=== PATIENT | female | born 1985 | race Caucasian/White ===

== ENCOUNTER 2017-03-26 11:43 | Emergency (ER) | payer MEDICAID, SELFPAY ==
[2017-03-26 12:59] VITALS: BP 114/72; PULSE 83; RESP 20; TEMP 36.8; O2SAT 100
== END 2017-03-26 13:00 | disposition left against medical advice (07) ==
LOC: UTC 11:49
PROVIDERS: Emergency Provider Nurse Practitioner; Family Provider Emergency Medicine; PCP Internal Medicine
DX: Z53.29 Procedure and treatment not carried out because of patient's decision for other reasons (principal)
CPT/HCPCS: 99201

== ENCOUNTER 2020-07-19 20:29 | Emergency (ER) | payer OTHER, SELFPAY ==
[2020-07-19 20:46] VITALS: BP 126/77; PULSE 89; RESP 19; TEMP 36.6; O2SAT 98; BMI 21.2
--- NOTE | 2020-07-19 20:58 | HMH.EDUTC ---
[facility] [place] Clinical Impression: Sinusitis Qualifiers: Sinusitis location: unspecified location Chronicity: unspecified Qualified Code(s): J32.9 - Chronic sinusitis, unspecified Acute bronchitis Qualifiers: Bronchitis organism: unspecified organism Qualified Code(s): J20.9 - Acute bronchitis, unspecified Disposition: Home, Self-Care Condition on Discharge: Good Instructions: Sinusitis, DI for Sinusitis, DI for Acute Bronchitis, How to Quit Smoking, Reasons to Quit Smoking Additional Instructions: ? Start antibiotic today. Be sure to complete entire prescription even if feeling better ? Monitor temp. Tylenol every 4 hours as needed and / or ibuprofen every 6 hours as needed ( As long as your primary care physician has told you that it ok to take both. For fever/aches/pains ER if no less than 101 despite Tylenol or Motrin ? Humidifier/vaporizer or hot steamy shower ? Mucinex during the day for your cough and cough suppressant only at night. Be sure to drink lots of water. Insurance may not cover a prescriptions for mucinex. Might be cheaper to get 400mg tablets and take 2 tablet in the morning, mid-day and evening with lots of water. *Start steroid today. Helps with inflammation therefore, cough and wheezing. Follow directions on the package. Reviewed side effects. Patient reports taking them before. Follow up IMMEDIATELY for new or worsening of symptoms OR no noticeable improvement over the next 48-72 hours. 911 immediately for any life threatening symptoms such as chest pain or difficulty breathing Referrals: Yo Mac [Primary Care Provider] - As needed Forms: Work/School Release Time of Disposition: 21:09 Medical Decision Making - [place] Inquiry Pt receiving controlled substance: No [place] was queried for this patient: No Vital Signs: 07/19/20 20:46 Temperature 97.8 F Temperature Source Oral Pulse Rate [Right Brachial] 89 Respiratory Rate 19 Blood Pressure [Right Arm] 126/77 Blood Pressure Mean [Right Arm] 93 Blood Pressure Source [Right Arm] Automatic Cuff Blood Pressure Position [Right Arm] Sitting 02 Sat by Pulse Oximetry 98 Oxygen Delivery Method Room Air Orders (Tests/Meds): ORDERS Category Date Time Status Covid-19 Nasal PCR ([facility]) Routine Lab 07/19/20 20:48 Received Medical Decision Narrative: patient states that she has taken azithromycin and prednisone in the past without complications or reactions [facility] [place] - General Stated complaint: COUGH,TIGHTNEESS IN CHEST Time Seen by Provider: 07/19/20 20:58 Mode of Arrival: Ambulatory Source of Information: Patient Limitations: No Limitations Description of Symptoms (Recalled from Triage Doc. by RN): cough, stuffy nose, chest tightness x2 days HEENT Symptoms (Recalled from RN notes): Yes Resp Symptoms (Recalled from RN notes): Yes Skin Symptoms (Recalled from RN notes): No MS Symptoms (Recalled from RN notes): No Functional Status (Recalled from RN notes): wnl - History of Present Illness Provider Complaint: Patient states that she is an everyday smoker States that she gets bronchitis about this time every year States that she has been having sinus pressure on and off for over a week and feels like it is trying to move into her chest State that she isnt coughing anything up but feels like she is getting bronchitis - Related Data Home Medications Medication Instructions Recorded Confirmed Naproxen [Naprosyn 500mg tablet] 500 mg PO BID 08/16/17 08/16/17 Previous Rx's Medication Instructions Recorded cephALEXin [Keflex 500mg Cap] 500 mg PO TID #30 cap 08/16/17 predniSONE [Prednisone 20mg 20 mg PO DAILY #10 tab 08/16/17 Tab] Azithromycin [Z-Alvarado 250mg Tab*] 250 mg PO UD DOSE PK #6 tab 02/20/19 Brompheniramine/Pseudoephed/Dm 5 ml PO Q6HP PRN #240 syrup 02/20/19 [Bromfed Dm Cough Syrup] predniSONE [Deltasone 10mg tablet] 10 mg PO BID 3 Days #6 tab 02/20/19 Oseltamivir Phosphate [Tamiflu 75 mg PO BID #10 cap 03/22
[2020-07-19 21:11] VITALS: BP 126/77; PULSE 89; RESP 19; TEMP 36.6; O2SAT 98
== END 2020-07-19 21:18 | disposition home or self-care (01) ==
PROVIDERS: Emergency Provider Nurse Practitioner; PCP Internal Medicine
DX: J20.9 Acute bronchitis, unspecified (principal); J32.9 Chronic sinusitis, unspecified; Z20.822 Contact with and (suspected) exposure to COVID-19; F17.210 Nicotine dependence, cigarettes, uncomplicated
CPT/HCPCS: 99202; G0463; U0003

== ENCOUNTER → 2020-11-05 09:36 | Outpatient (CLI) | payer OTHER, SELFPAY | PROVIDERS: PCP Internal Medicine; Visit Provider Internal Medicine | DX: Z20.822 Contact with and (suspected) exposure to COVID-19 (principal); U07.1 COVID-19 | CPT/HCPCS: U0003 ==

== ENCOUNTER → 2022-08-06 12:49 | Outpatient (CLI) | payer OTHER, SELFPAY ==
[2022-08-06 15:33] LABS: Microscopic, Urine URINE MICROSCOPIC (MICROSCOPIC)
[2022-08-06 15:50] LABS: Appearance,Urine CLEAR (Clear); Bilirubin,Urine Negative (Negative); Blood, Urine Negative (Negative); Color,Urine YELLOW (Yellow); Glucose,Urine (UA) Negative (Negative); Ketones,Urine Negative (Negative); Leukocyte Esterase,Urine Negative (Negative); Nitrate,Urine Negative (Negative); PH,Urine 7.5 (5.0-8.5); Protein,Urine TRACE (Negative)
[2022-08-06 15:53] LABS: Basophils % 0.4 % (0.1-2.0); Eosinophils # 0.2 K/mm3 (0.0-0.4); Eosinophils % 3.2 % (0.1-12.0); Hematocrit 44.3 % (37.0-47.0); Hemoglobin 14.4 g/dL (12.2-16.2); Lymphocytes # 1.7 K/mm3 (0.7-4.5); Mean Corpuscular HGB Conc 32.5 g/dL (31.8-35.4); Mean Corpuscular Hemoglobin 33.2 pg (27.0-31.2); Mean Corpuscular Volume 102.3 fl (81-99); Mean Platelet Volume 9.8 fl (7.4-10.4); Monocytes # 0.3 K/mm3 (0.1-1.0); Monocytes % 5.2 % (1.7-9.3); Neutrophils # 3.3 K/mm3 (1.8-7.8); Neutrophils % 60.1 % (37.0-80.0); Platelet Count 204 K/mm3 (142-424); Red Blood Count 4.32 M/mm3 (4.20-5.40); Red Cell Distribution Width 12.7 % (11.5-17.5); White Blood Count 5.4 K/mm3 (4.8-10.8)
[2022-08-06 16:12] LABS: Bacteria,Urine 1+ /lpf
[2022-08-06 16:19] LABS: Chloride 97 mmol/L (98-107); Potassium 4.3 mmoL/L (3.5-5.1); Sodium 138 mmol/L (136-145)
[2022-08-06 16:21] LABS: Alanine Aminotransferase 77 U/L (12-78); Alkaline Phosphatase 60 U/L (38-126); Aspartate Amino Transferase 65 U/L (14-36); Bilirubin,Total 0.3 mg/dl (0.2-1.3); Blood Urea Nitrogen 13 mg/dl (7-17); Estimated Glomerular Filt Rate 82 ml/min (>60); GFR (African American) 99 ML/MIN (>60)
[2022-08-06 16:22] LABS: Albumin Level 4.3 g/dl (3.5-5.0); Albumin/Globulin Ratio 1.5 (1.1-1.8); Anion Gap 15.3 mEq/L (5-15); Calcium 9.4 mg/dl (8.4-10.2); Carbon Dioxide 30 mmol/L (22.0-30.0); Globulin 2.8 g/dL (1.3-3.2); Glucose 76 mg/dl (74-100); Total Protein,Serum 7.1 g/dl (6.3-8.2)
[2022-08-06 16:31] LABS: NT Pro Brain Natriuretic Pep. 72.1 pg/mL (0-125)
[2022-08-15 10:35] LABS: Hep B Core Ab, Total NEGATIVE; Hep B Surface Ab, Qual REACTIVE; Hepatitis C Antibody REACTIVE
== END ==
PROVIDERS: PCP Internal Medicine; Visit Provider Internal Medicine
DX: R60.9 Edema, unspecified (principal); Z86.19 Personal history of other infectious and parasitic diseases
CPT/HCPCS: 80053; 81001; 83880; 85025; 86704; 86706; 87380

== ENCOUNTER → 2022-11-08 08:36 | Outpatient (CLI) | payer OTHER, SELFPAY ==
--- NOTE | 2022-11-08 08:40 | US_ITS ---
FINAL REPORT CLINICAL HISTORY: ELEVATED LFTS COMPARISON: None FINDINGS: Sonographic images of the right upper quadrant were obtained. The pancreas is partially obscured. There is a coarse hepatic echotexture present, nonspecific. The gallbladder is partially collapsed. There is no evidence of biliary ductal dilatation.The common duct measures 3 mm. Limited images of the right kidney are unremarkable. IMPRESSION: Somewhat coarsened echotexture of the liver, nonspecific finding. No evidence of biliary ductal dilatation. Reviewed, Interpreted and Dictated by Alejandro Newberry III, MD Transcribed by Iza Bryant Authenticated and [facility]
== END ==
PROVIDERS: PCP Internal Medicine; Visit Provider Physician Assistant
DX: R74.01 Elevation of levels of liver transaminase levels (principal)
CPT/HCPCS: 76705

== ENCOUNTER 2023-08-21 16:06 | Outpatient (CLI) | payer OTHER, SELFPAY ==
[2023-08-21 16:37] LABS: Basophils % 0.6 % (0.1-2.0); Eosinophils # 0.1 K/mm3 (0.0-0.4); Eosinophils % 1.8 % (0.1-12.0); Hematocrit 43.2 % (37.0-47.0); Hemoglobin 14.2 g/dL (12.2-16.2); Lymphocytes # 2.9 K/mm3 (0.7-4.5); Lymphocytes % 45.3 % (10-50); Mean Corpuscular Hemoglobin 34.2 pg (27.0-31.2); Mean Corpuscular Volume 103.9 fl (81-99); Mean Platelet Volume 9.7 fl (7.4-10.4); Monocytes # 0.3 K/mm3 (0.1-1.0); Monocytes % 4.3 % (1.7-9.3); Neutrophils # 3.1 K/mm3 (1.8-7.8); Platelet Count 176 K/mm3 (142-424); Red Blood Count 4.15 M/mm3 (4.20-5.40); Red Cell Distribution Width 12.9 % (11.5-17.5); White Blood Count 6.4 K/mm3 (4.8-10.8)
[2023-08-21 17:02] LABS: Alanine Aminotransferase 13 U/L (12-78); Albumin Level 4.5 g/dl (3.5-5.0); Albumin/Globulin Ratio 1.7 (1.1-1.8); Alkaline Phosphatase 56 U/L (38-126); Amylase 42 U/L (30-110); Anion Gap 11.9 mEq/L (5-15); Aspartate Amino Transferase 21 U/L (14-36); Bilirubin,Total 0.8 mg/dl (0.2-1.3); Blood Urea Nitrogen 9 mg/dl (7-17); Calcium 9.6 mg/dl (8.4-10.2); Carbon Dioxide 28 mmol/L (22.0-30.0); Chloride 102 mmol/L (98-107); Estimated Glomerular Filt Rate 71 ml/min (>60); GFR (African American) 86 ML/MIN (>60); Globulin 2.6 g/dL (1.3-3.2); Glucose 94 mg/dl (74-100); Potassium 3.9 mmoL/L (3.5-5.1); Sodium 138 mmol/L (136-145); Total Protein,Serum 7.1 g/dl (6.3-8.2)
== END 2023-08-21 23:59 | disposition home or self-care (01) ==
LOC: LAB 16:09
PROVIDERS: PCP Internal Medicine; Visit Provider Internal Medicine
DX: R10.11 Right upper quadrant pain (principal); R10.13 Epigastric pain; R11.2 Nausea with vomiting, unspecified
CPT/HCPCS: 36415; 80053; 82150; 85025

== ENCOUNTER 2023-09-30 08:26 | Outpatient (CLI) | payer OTHER, SELFPAY ==
--- NOTE | 2023-09-30 08:26 | US_ITS ---
FINAL REPORT CLINICAL HISTORY: RUQ pain, bloating COMPARISON: None FINDINGS: Sonographic images of the right upper quadrant were obtained. The pancreas is partially obscured. There is fatty infiltration of the liver. The gallbladder appears normal without evidence of gallstones.There is no evidence of biliary ductal dilatation.The common duct measures 2 mm. Limited images of the right kidney are unremarkable. IMPRESSION: Fatty liver. Reviewed, Interpreted and Dictated by Alejandro Newberry III, MD Transcribed by Giovana Camarena Authenticated and [facility]
--- NOTE | 2023-09-30 08:26 | FL_ITS ---
FINAL REPORT CLINICAL HISTORY: .GB PAIN..PEPTIC ULCER DISEASE 1.59 FLUORO TIME 1371.93 FLUORO TIME FINDINGS: AIR CONTRAST UPPER GI HISTORY: Acute right upper quadrant abdominal pain. TECHNIQUE: The patient ingested thick and thin barium contrast. Effervescent crystals were also administered. Spot and overhead films were performed. A total of 37 images were saved. FINDINGS: The esophagus demonstrates no morphologic abnormalities. No mucosal defects are seen and motility appears normal. The stomach is of normal size, shape and position. No gastric filling defects are seen. The duodenal bulb appears unremarkable. There appears to be duodenal fold thickening, raising the question of duodenitis. No episodes of gastroesophageal reflux observed. 13 mm barium tablet is delayed in the distal esophagus. This does eventually pass during the examination. Incidental note is made that the more inferior two spinal screws are broken. FLUROSCOPY TIME: 1 minute 59 seconds Radiation exposure in Total DAP: 1371.93 uGym2 IMPRESSION: 13 mm barium tablet is delayed in the distal esophagus, but does pass during the examination. Thickened duodenal folds, raising question of duodenitis. Incidental note is made of fracture of the inferior 2 spinal screws. Reviewed, Interpreted and Dictated by Alejandro Newberry III, MD Transcribed by Debby Hercules PA-C Authenticated and [facility]
[2023-09-30] MEDS: BARIUM SULFATE (E-Z-HD 340GM);135ML BOTTLE 135 ML PO (09:40)
[2023-09-30] MEDS: BARIUM SULFATE(E-Z-AC);750ML BOTTLE 750 ML PO (09:40)
[2023-09-30] MEDS: E-Z-GASII EFFERVESCENT GRANULES;1PK 1 EACH PO (09:40)
== END 2023-09-30 23:59 | disposition home or self-care (01) ==
LOC: RAD 08:26
PROVIDERS: PCP Internal Medicine; Visit Provider Internal Medicine
DX: R10.11 Right upper quadrant pain (principal)
CPT/HCPCS: 74246; 76705

== ENCOUNTER 2024-06-15 10:52 | Outpatient (CLI) | payer OTHER, SELFPAY ==
[2024-06-15 12:48] LABS: HIV Combo NEGATIVE (Negative)
[2024-06-15 12:56] LABS: Hepatitis C Ab Qual. W/ RFX REACTIVE (Negative)
[2024-06-16 11:22] LABS: FSH 3.8 mIU/mL (.); LH 3.7 mIU/mL (.)
== END 2024-06-15 23:59 | disposition home or self-care (01) ==
LOC: LAB 10:53
PROVIDERS: PCP Internal Medicine; Visit Provider Nurse Practitioner Obstetrics & Gynecology
DX: Z01.419 Encounter for gynecological examination (general) (routine) without abnormal findings (principal)
CPT/HCPCS: 36415; 82670; 83001; 83002; 86803; 87389; 87522